=== PATIENT | male | born 1965 ===

== ENCOUNTER 2017-01-08 14:14 | Observation (INO) | payer BC ==
[2017-01-08 14:26] VITALS: BP 141/82; PULSE 91; RESP 18; TEMP 98; O2SAT 97
[2017-01-08] MEDS ORDERED: Piperacillin/Tazobact 3.375 GM in Sodium Chloride 0.9% 100 ML IVPB STA (14:36)
[2017-01-08] MEDS ORDERED: Vancomycin 1 g Inj ONE (15:12)
[2017-01-08 15:24] LABS: VENOUS BLOOD GAS BASE EXCESS 2.7 mmol/L (0.0-2.0); VENOUS BLOOD GAS PCO2 44 mmHg (40-60); VENOUS BLOOD PH 7.41 (7.32-7.43)
[2017-01-08 15:26] LABS: ALB/GLOB RATIO 1.4 (1.0-2.1); ALKALINE PHOSPHATASE 66 U/L (38-126); ALT/SGPT 42 U/L (21-72); AST/SGOT 24 U/L (17-59); BILIRUBIN,TOTAL 0.6 mg/dl (0.2-1.3); BLOOD UREA NITROGEN 19 mg/dl (9-20); CALCIUM 9.6 mg/dL (8.4-10.2); CARBON DIOXIDE 24 mmol/L (22-30); CHLORIDE 107 mmol/L (98-107); GFR AFRICAN-AMERICAN > 60; GLUCOSE,RANDOM 114 mg/dL (75-110); POTASSIUM 3.8 MMOL/L (3.6-5.0); SODIUM 142 mmol/l (132-148); TOTAL PROTEIN 7.8 G/DL (6.3-8.2)
--- NOTE | 2017-01-08 15:43 | ED PDOC ---
HPI: Skin/Bite Injury Time Seen by Provider: 01/08/17 14:27 Chief Complaint (Nursing): Bite Chief Complaint (Provider): Bite History Per: Patient History/Exam Limitations: no limitations Onset/Duration Of Symptoms: Days (x 2) Current Symptoms Are (Timing): Still Present Location Of Injury: Left: Hand Additional Complaint(s): Roddy Palmer is a 51 y/o male who presents to the ED for evaluation of animal bite. Patient states yesterday he was bit by his dog at the left index finger, causing a cut. This morning he noticed swelling and redness to the finger, prompting ED visit. Tetanus is not up to date. Dogs shots are up to date. Denies fever and chills. PMD: Non H provider - Animal Bite Description Of The Animal: Family Pet Animal's Immunization Status: UTD Past Medical History Reviewed: Historical Data, Nursing Documentation, Vital Signs Vital Signs: Last Vital Signs Temp 98 F 01/08/17 14:19 Pulse 91 H 01/08/17 14:19 Resp 18 01/08/17 14:19 BP 141/82 01/08/17 14:19 Pulse Ox 97 01/08/17 20:37 - Medical History PMH: No Chronic Diseases Denies: Chronic Kidney Disease - Surgical History Surgical History: Appendectomy Other surgeries: Brain surgery - Family History Family History: States: Unknown Family Hx - Social History Current smoker - smoking cessation education provided: Yes (Light) Alcohol: Social Drugs: Denies - Immunization History Hx Influenza Vaccination: No - Home Medications Home Medications: Ambulatory Orders Medication Instructions Recorded Acetaminophen/Oxycodone Hydr 1 tab PO Q4 PRN #20 tab 08/30/13 [Percocet 325 mg-5 mg] Ciprofloxacin HCl [Cipro] 500 mg PO BID #14 tab 08/30/13 Cyclobenzaprine [Cyclobenzaprine 10 mg PO Q8 PRN #30 tab 05/23/15 HCl] Dicyclomine [Dicyclomine HCl] 10 mg PO BID PRN #6 cap 06/09/15 Ibuprofen [Motrin] 600 mg PO TID 7 Days 06/09/15 Ondansetron [Zofran] 4 mg PO Q8H PRN #6 tab 06/09/15 Amoxicillin/Clavulanate [Augmentin 1 tab PO Q8 #30 tab 01/08/17 500 MG-125 MG] - Allergies Allergies/Adverse Reactions: Allergies Allergy/AdvReac Type Severity Reaction Status Date / Time No Known Allergies Allergy Verified 01/08/17 15:09 Review of Systems ROS Statement: Except As Marked, All Systems Reviewed And Found Negative Constitutional: Negative for: Fever Skin: Positive for: Lesions (Bite at left index finger) Physical Exam - Reviewed Nursing Documentation Reviewed: Yes Vital Signs Reviewed: Yes - Physical Exam Appears: Positive for: Well, Non-toxic, No Acute Distress Skin: Positive for: Warm, Dry (with 0.5 cm linear superficial laceration to the dorsal surface of middle phalanx of left index finger. Noted erythema throughout entire left 2nd digit, extending to MCP joint.). Negative for: Normal Color Eye Exam: Positive for: EOMI, Normal appearance, PERRL Neck: Positive for: Normal, Painless ROM Respiratory: Negative for: Respiratory Distress Pulses-Radial (L): 2+ Pulses-Radial (R): 2+ Extremity: Positive for: Normal ROM (with full ROM actively of left second digit ), Capillary Refill (< 2 sec). Negative for: Deformity Neurologic/Psych: Positive for: Alert, Oriented. Negative for: Motor/Sensory Deficits - Laboratory Results Result Diagrams: 01/08/17 15:54 01/08/17 14:43 - ECG O2 Sat by Pulse Oximetry: 97 (RA) Pulse Ox Interpretation: Normal Medical Decision Making Medical Decision Making: Time: 14:34 Initial Plan: --VBG --CMP --CBC w/ differential --Blood culture --Given tetanus vaccine --Patient given IV Vancomycin and Zosyn --X-Ray Left Hand --X-Ray Right Hand --Patient admitted to ED-OBS for finger cellulitis Scribe Attestation: Documented by Lavern Ro, acting as a scribe for Luis Jolly PA-C Provider Scribe Attestation: All medical record entries made by the Last were at my direction and personally dictated by me. I have reviewed the chart and agree that the record accurately reflects my personal performance of the history, physical exam, medical decision making, and the department course for this patient. I have also personally directed, reviewed, and agree with the discharge instructions and disposition. ED OBSERVATION Date of observation admission: 01/08/17 Time of observation admission: 14:34 - Observation admission statement Patient is being placed in observation because:: finger cellulitis - Goals of Observation Goals of observation are:: Improvement of symptoms - Progress Note Progress Note: 01/08/17 Time: 14:34 --Patient appears comfortable. Vital signs stable. --Pending X-Ray Time: 16:00 --Patient continues to rest. Vital signs stable. Time: 16:01 X-Ray Left Hand: FINDINGS: BONES: Normal. No fracture. JOINTS: Normal. No osteoarthritic changes. SOFT TISSUES: Normal. OTHER FINDINGS: None. IMPRESSION: Normal left hand radiographs. Time: 17:30 --Patient continues to rest comfortably. Vital signs stable. --Informed of results and instructed to go to PMD in 2 days for wound check but is to return to ED if fever develops or redness worsens. Clinical Impression: Dog bite, cellulitis Upon provider reevaluation patient is medically stable, and requires no further treatment in the ED at this time. Patient will be discharged home with Rx for Augmentin. Counseling was provided and all questions were answered regarding diagnosis and need for follow up with PMD. There is agreement to discharge plan. Return if symptoms persist or worsen. Disposition - Clinical Impression Clinical Impression: Dog bite, Cellulitis - Patient ED Disposition Is Patient to be Admitted: No Counseled Patient/Family Regarding: Studies Performed, Diagnosis, Need For Followup, Rx Given - Disposition Disposition: Routine/Home Disposition Time: 19:00 Condition: STABLE
[2017-01-08 15:55] LABS: BASO # 0.1 K/uL (0.0-0.2); BASO % 0.7 % (0.0-2.0); EOS # 0.1 K/uL (0.0-0.7); EOS % 1.8 % (0.0-4.0); HEMATOCRIT 40.5 % (35.0-51.0); LYMPH % 24.4 % (20.0-40.0); MEAN CELL VOLUME 83.8 fl (80.0-94.0); MEAN CORPUSCULAR HEMOGLOBIN 28.5 pg (27.0-31.0); MEAN PLATELET VOLUME 9.7 fl (7.2-11.7); MONO # 0.5 K/uL (0.0-0.8); MONO % 5.8 % (0.0-10.0); NEUT # 5.4 K/uL (1.8-7.0); NEUT % 67.3 % (50.0-75.0); NRBC % 0.2 % (0.0-0.0); WHITE BLOOD COUNT 8.1 K/uL (4.8-10.8)
--- NOTE | 2017-01-08 16:03 | RAD ---
PROCEDURE: Left Hand Radiographs. HISTORY: cellulitis; s/p dog bite COMPARISON: None. FINDINGS: BONES: Normal. No fracture. JOINTS: Normal. No osteoarthritic changes. SOFT TISSUES: Normal. OTHER FINDINGS: None. IMPRESSION: Normal left hand radiographs.
[2017-01-08] MEDS ORDERED: Piperacillin/Tazobact 3.375 gm Inj IVPB ONE (17:24)
== END 2017-01-08 18:31 | disposition home or self-care (01) ==
LOC: H.ER 14:14 → H.EROBSV 14:35
PROVIDERS: ADMIT Emergency Medicine; ATTEND Emergency Medicine
DX: L03.012 Cellulitis of left finger (principal); S61.251A Open bite of left index finger without damage to nail, initial encounter; F17.200 Nicotine dependence, unspecified, uncomplicated; Z23 Encounter for immunization
CPT/HCPCS: 36415; 73130; 80053; 82803; 85025; 87040; 90471; 90715; 99282; G0378; J2543